=== PATIENT | male | born 1980 | race Caucasian/White ===

== ENCOUNTER → 2021-06-10 | Outpatient (CLI) | payer OTHER ==
[2021-06-10 21:40] LABS: Adenovirus F 40/41 Not Detected (NOT DETECT); Astrovirus Not Detected (NOT DETECT); Campylobacter Sp Not Detected (NOT DETECT); Cryptosporidium Not Detected (NOT DETECT); Cyclospora Cayetanensis Not Detected (NOT DETECT); E. Coli O157 Not Detected (NOT DETECT); Entamoeba Histolytica Not Detected (NOT DETECT); Enteroaggregative E. coli-EAEC Not Detected (NOT DETECT); Enteropathogenic E. coli-EPEC Not Detected (NOT DETECT); Enterotoxigenic E. coli-ETEC Not Detected (NOT DETECT); Giardia Lamblia Detected (NOT DETECT); Norovirus GI/GII Not Detected (NOT DETECT); Plesiomonas Shigelloides Not Detected (NOT DETECT); Rotavirus A Not Detected (NOT DETECT); Salmonella Sp Not Detected (NOT DETECT); Sapovirus Not Detected (NOT DETECT); Shiga Toxin-prod E. coli-STEC Not Detected (NOT DETECT); Shigella/Enteroin E. coli-EIEC Not Detected (NOT DETECT); Vibrio Cholerae Not Detected (NOT DETECT); Vibrio Sp Not Detected (NOT DETECT); Yersinia Enterocolitica Not Detected (NOT DETECT)
== END | disposition home or self-care (01) ==
LOC: LAB SHORT 17:50
PROVIDERS: Family Medicine
DX: A09 Infectious gastroenteritis and colitis, unspecified (principal)
CPT/HCPCS: 0097U

== ENCOUNTER 2025-06-22 06:15 | Day surgery (SDC) | payer OTHER ==
[~2025-06-22] VITALS: Ht 172.7 cm; Wt 73.6 kg
[2025-06-22] MEDS ORDERED: Tranexamic Acid 100 ML IV ONE (06:16)
[2025-06-22] MEDS ORDERED: CeFAZolin Sodium 2,000 MG VIAL ONE (06:17)
[2025-06-22] MEDS ORDERED: CeFAZolin Sodium 2,000 MG in NS 100 ML IV SCH (06:40)
[2025-06-22] MEDS ORDERED: Ropivacaine 0.5% HCl/Pf 123.125 MG,EPINEPHrine HCL 0.25 MG,Ketorolac Tromethamine 15 MG... INFIL SCH (06:40)
[2025-06-22] MEDS ORDERED: FentaNYL Citrate 50 MCG/ML 2 ML Injection ONE ×2 (07:03→11:43)
[2025-06-22] MEDS ORDERED: Midazolam HCl 1MG / ML 2ML Vial ONE (07:04)
[2025-06-22] MEDS ORDERED: Bupivacaine 0.5% HCl 5 MG/ML 30MLVIAL ONE (07:07)
--- NOTE | 2025-06-22 07:37 | NUR ---
06/22/25 0737 NOE MCCLOUD PO BLOCK AND SAPHENOUS BLK W/ DR PRUETT OXYGEN ON PT 3L NC- 100% HR 55 EKG NSR T/O:[id number] START BLOCK: 723 END BLOCK: 728 LR: 300ML IN PREOP
[2025-06-22] MEDS ORDERED: Ondansetron HCl 2 MG / ML 2ML Vial ONE ×3 (09:00→12:35)
--- NOTE | 2025-06-22 09:55 | NUR ---
06/22/25 0955 Alexandru Tan IMPLANT # [id number], LOT #[id number], EXPIRATION DATE 01/07/29.
[2025-06-22] MEDS ORDERED: CeFAZolin Sodium 1000 mg Vial ONE (10:34)
[2025-06-22] MEDS ORDERED: Metoclopramide HCl 5MG / ML 2ML Vial ONE (11:16)
--- NOTE | 2025-06-22 11:56 | NUR ---
06/22/25 1156 Jasbir Combs PT NAUSEAS AND VOMITED X4 IN PACU. MEDICATED WITH ZOFRAN AND REGLAN, SEE EMAR.
[2025-06-22 12:05] VITALS: BP 126/72
[2025-06-22] MEDS ORDERED: ePHEDrine Sulfate 50 MG/ML 1ML Injection ONE (12:12)
--- NOTE | 2025-06-22 12:56 | NUR ---
06/22/25 1256 Jasbir Combs TRANSFERED TO [facility], [place].RDS.
== END 2025-06-22 13:20 | disposition home or self-care (01) ==
LOC: ORSCSDS 06:15
PROVIDERS: Podiatrist Foot & Ankle Surgery
PROC: 0SRF0JZ Replacement of Right Ankle Joint with Synthetic Substitute, Open Approach (ICD-10-PCS; principal; 2025-06-22 07:30)
PROC: 0MQQ0ZZ Repair Right Ankle Bursa and Ligament, Open Approach (ICD-10-PCS; principal; 2025-06-22 07:30)
PROC: 0L8N0ZZ Division of Right Lower Leg Tendon, Open Approach (ICD-10-PCS; principal; 2025-06-22 07:30)
DX: M19.171 Post-traumatic osteoarthritis, right ankle and foot (principal); M25.371 Other instability, right ankle; M21.171 Varus deformity, not elsewhere classified, right ankle; M24.871 Other specific joint derangements of right ankle, not elsewhere classified
CPT/HCPCS: A6253; A9270; C1713; C1776; J0166; J0690; J0735; J1885; J2250; J2405; J2704; J2765; J2795; J3010; J7120